=== PATIENT | male | born 1950 | race Caucasian/White ===

== ENCOUNTER 2022-07-25 11:59 | Outpatient (REF) | payer MEDICARE, SELFPAY ==
[2022-07-25 13:13] LABS: SARS PCR* Negative SARS-CoV-2 (Negative)
== END 2022-07-25 12:00 | disposition home or self-care (01) ==
LOC: NPINS 11:59
PROVIDERS: Visit Provider Podiatrist
DX: Z11.52 Encounter for screening for COVID-19 (principal)
CPT/HCPCS: 87635

== ENCOUNTER 2022-07-28 06:00 | Day surgery (SDC) | payer MEDICARE, SELFPAY ==
[2022-07-28] VITALS (23 sets, daily range): BP systolic 88–141; BP diastolic 45–95; PULSE 65–83; RESP 14–16; TEMP 36.1–36.3; O2SAT 93–100; BMI 32.4
[2022-07-28] MEDS: LACTATED RINGERS 1000 ML 1,000 ML 100 ML IV (06:30)
[2022-07-28] MEDS: SODIUM CHLORIDE 0.9 % (FLUSH) 10 ML SYRINGE IVF (06:47)
--- NOTE | 2022-07-28 07:16 | CRLHL7_ITS ---
For Patients: As a result of the Cures Act, medical imaging exams and procedure reports are released immediately into your electronic medical record. You may view this report before your referring provider. If you have questions, please contact your health care provider. Indication: OSTECTOMY CALCANEUS W/ ACHILLES TENDON REPAIR Technique: Two fluoroscopic images of the right calcaneus. Fluoroscopic time 14.1 seconds. IMPRESSION: Fluoroscopic guidance for ostectomy of the calcaneus with Achilles tendon repair. Dictated by Junior Manrique MD @ 07/28/2022 9:18:30 AM (Electronically Signed)
[2022-07-28] MEDS: CEFAZOLIN 2 GM INJ IVP (07:21)
[2022-07-28] MEDS: BUPIVACAINE 0.5% 30 ML INJECTION (07:55)
--- NOTE | 2022-07-28 09:21 | PM.ONB ---
Brief Operative Note Date of procedure: 07/28/22 Pre-op diagnosis: Calcific Achilles tendinitis with bone spur right Post-op diagnosis: same Implants: Arthrex SpeedBridge set Anesthesia: GETA and local Surgeon: Mich Alfredo Estimated blood loss (mL): 5 Condition: stable Disposition: PACU
--- NOTE | 2022-07-28 09:23 | W.ANESCHARGE ---
Anesthesia Charges Start Date/Time Anesthesia Start Date: 07/28/22 Anesthesia Start Time: 07:21 Stop Date/Time Anesthesia Stop Date: 07/28/22 Anesthesia Stop Time: 09:20 Summary Emergency: No Extremes of Age: Over 70-CPT 91692
--- NOTE | 2022-07-28 09:25 | P.GSOP_ITS ---
Operative Note Date of procedure: 07/28/22 Type of Procedure: 1. Calcaneal ostectomy with Achilles tendon debridement and repair right Procedure Description: After discussing the risks and benefits of the procedure, the patient signed informed consent.? The operative site was marked and the patient was brought to the operating room. He was then intubated on the operating room cart by anesthesia and then was rolled into a prone position on the operating room tab le. He was appropriately padded. Thigh tourniquet placed. 30 mL of 0.5% Marcaine plain were then injected around the surgical site.?? The operative site was then prepped and draped in the usual sterile fashion.? A time-out was then performed. The right leg was exsanguinated and the tourniquet inflated to 300 mm Hg. Linear incision made centrally over the posterior calcaneus and distal Achilles tendon. Incision was carried down through skin subcutaneous tissues. Paratenon was identified and incised. The Achilles tendon was then split down the midline and reflected away from the large posterior spur. A rongeur was used to remove the enlarged bone spur. Sagittal saw was used to remove the posterior superior tubercle. A power rasp was then used to remodel posterior heel. Wound was thoroughly irrigated normal sterile saline. C-arm confirmed excellent resection. The Achilles tendon was then debrided along its anterior aspect of small amount of calcified tendon and tendinosis. Arthrex SwiveLock anchor with FiberTape was then placed in the posterior superior aspect of the calcaneus on the medial side and the 2nd SwiveLock with FiberTape on the lateral side. Suture was then passed through the tendon slip medially from the medial anchor and laterally from the lateral anchor. Suture was tied down bringing the Achilles tendon onto the calcaneus. Two more drill holes were made inferior 1 medial 1 lateral in the calcaneus. One suture from each anchor was then brought together and the medial SwiveLock inserted. The same was then done for the lateral anchor. This tension the Achilles tendon back onto the calcaneus distally. Wound was irrigated with normal sterile saline. Paratenon was repaired with 4-0 Vicryl. Subcutaneous tissues reapproximated with 4-0 Monocryl and skin closed with 4-0 Prolene. Sterile dressing was then applied and the tourniquet released. Normal cap refill time returned to all digits. He was placed in a well-padded plaster splint in gravity dorsiflexion. ? The patient was then woken and transported to the recovery area in stable condition. The patient tolerated the procedure well. Implants: Arthrex SpeedBridge kit x1 Anesthesia: GETA and local Surgeon: Mich Alfredo DPM Estimated blood loss (mL): 5 Condition: stable Disposition: PACU
--- NOTE | 2022-07-28 09:45 | W.ANESCHARGE ---
Anesthesia Charges Start Date/Time Anesthesia Start Date: 07/28/22 Anesthesia Start Time: 07:21 Stop Date/Time Anesthesia Stop Date: 07/28/22 Anesthesia Stop Time: 09:20 Summary Emergency: No Extremes of Age: Over 70-CPT 72016
== END 2022-07-28 10:45 | disposition home or self-care (01) ==
PROVIDERS: Visit Provider Podiatrist
PROC: (CPT 28300; principal; 2022-07-28 07:15)
DX: M77.31 Calcaneal spur, right foot (principal); M76.61 Achilles tendinitis, right leg
CPT/HCPCS: 28120; 1472; 73650; 76000; 99100; C1713; J0330; J0690; J1170; J2250; J2405; J2704; J3010; J3490; J7120

== ENCOUNTER 2022-11-06 08:00 | Outpatient (RCR) | payer MEDICARE, SELFPAY | END 2022-12-01 14:38 | disposition home or self-care (01) | PROVIDERS: PCP Podiatrist; Visit Provider Podiatrist | DX: M65.28 Calcific tendinitis, other site (principal); Z51.89 Encounter for other specified aftercare | CPT/HCPCS: 97110; 97112; 97140; 97161; 97535 ==